=== PATIENT | male | born 1975 | race Caucasian/White ===

== ENCOUNTER 2021-09-11 23:30 | Emergency (ER) | payer SELFPAY ==
[2021-09-12] MEDS ORDERED: Acetaminophen 650 MG Suppository ONE (01:34)
[2021-09-12] MEDS ORDERED: Ibuprofen 200 MG TAB ONE (01:34)
[2021-09-12] MEDS ORDERED: Acetaminophen 325 MG TAB ONE (01:35)
[2021-09-12] MEDS ORDERED: predniSONE 20 MG TAB ONE (01:57)
== END 2021-09-12 02:00 | disposition home or self-care (01) ==
LOC: BURERS 23:30
DX: S20.212A Contusion of left front wall of thorax, initial encounter (principal); X50.9XXA Other and unspecified overexertion or strenuous movements or postures, initial encounter
CPT/HCPCS: J7512